=== PATIENT | female | born 1940 | race Caucasian/White ===

== ENCOUNTER 2017-05-22 13:28 | Emergency (ER) | payer MEDICARE, SELFPAY ==
[2017-05-22 13:31] VITALS: BP 101/65; PULSE 100; RESP 20; TEMP 37.2; O2SAT 92; BMI 21.0
--- NOTE | 2017-05-22 13:52 | EKG12_ITS ---
Test Reason : Blood Pressure : / mmHG Vent. Rate : 087 BPM Atrial Rate : 087 BPM P-R Int : 144 ms QRS Dur : 074 ms QT Int : 382 ms P-R-T Axes : 072 -45 060 degrees QTc Int : 459 ms Normal sinus rhythm Left axis deviation Low voltage QRS Abnormal ECG Confirmed by HELEN VENCES, MONICA ([id number]), industrial editor GINA TAMAYO ([id number] on 05/26/2017 2:00:59 PM Referred By: Angela Bañuelos Confirmed By:MONICA CERVANTES MD
--- NOTE | 2017-05-22 14:00 | RAD_ITS ---
STUDY: X-RAY CHEST REASON FOR EXAM: Female, 77 years old. BILATERAL LEG AND FEET SWELLING; COPD TECHNIQUE: Single AP portable view of the chest. COMPARISON: November 23, 2016 FINDINGS: The lungs are hyperexpanded. There is left worse than right basilar atelectasis. There is no demonstrated pleural abnormality. Normal size heart. Normal mediastinum and jason. Normal visualized pulmonary arteries. There is atherosclerotic calcification of the aortic arch with tortuosity. Normal visualized thoracic spine. Normal visualized ribs, clavicles, and shoulders. There is no demonstrated abnormality of the visualized soft tissue structures of the upper abdomen. RAD/Chest 1 View (Portable) IMPRESSION: There is chronic obstructive pulmonary disease. There is left worse than right basilar atelectasis. Electronically Signed: Taylor Royal MD at 14:22 EDT , Service support ,
--- NOTE | 2017-05-22 14:30 | ED.DCSUM_ITS ---
- ER Visit Summary Date of Service: 05/22/17 Chief Complaint: [] bilat ankle edema for a few days History of Present Illness: The patient is a 77 F [] has a long history of fatigue related to general deconditioning UTI sepsis etc. the patient's been at home living with her son had those recent diagnoses in March improved discharged home she will follow-up with her doctor early April all the tests including UA were negative the son reports since all of those diagnoses March and April and admissions she has basically been lethargic to where she does not want to go to bed will not walk will eat very little, she has had no fever no cough no chest head neck or abdominal pain, he noticed ankle edema bilaterally over the last few days he brought in for evaluation the patient says that her urinary and bowel bladder habits are normal she denies chest pain fever shortness of breath or cough she has no history of CHF liver failure renal failure DVT, when asked why she feels tired and she will basically get out of bed or move around she states she seems like she has no energy but nothing more specific than that she does eat small bites of food and again her bowel bladder habits have been unremarkable there are times where she thinks she is retaining urine Physical Examination: [] Is afebrile her vital signs are within normal range she sitting in the bed no distress head neck chest unremarkable lungs are clear heart tones are normal the abdomen soft nontender the back is unremarkable she has full range of motion of her lower extremities she has 1+-2+ edema at that level of the ankles there is no swelling of the calves there is no cords is no medial thigh pain there is no signs of DVT she has full range of motion at the hips knees and ankles she denies any history of obvious arthritis or anything that would cause bilateral ankle edema other than to report she simply is not as active as she was and she prefers basically either sit or lay around and has very little physical activity, she denies orthopnea or PND Test Results: [] Emergency Department Course and Treatment: [] Edema differential is rather extensive there is nothing to suggest infection DVT, her fatigue has been a long -standing issue her evaluation revealed Patient labs are unremarkable, chest x-ray see those reports, the patient Mei catheter had about 10 cc so she was not retaining urine the urinalysis is pending I explained to the son all of the above and the patient she is comfortable discharge home. UA did show signs of UTI urine culture was sent she was started on oral Cipro first dose here The son reports that basically since she was hospitalized late March or April she has been fatigued and deconditioned to where she simply has limited energy get out of bed, this is likely the cause of her edema he is comfortable for discharge home if the UA shows signs of UTI we will treat that as a precaution we sent a urine culture otherwise he will follow-up with her family doctor encourage her to activate and walk around the house discussed with PCP physical therapy and other management options, please note I did order thyroid screening studies are not available and the son will have the family doctor check these Treatment Plan: [] Disposition: [] Home stable Impression: [] Fatigue, lack of appetite, lower extremity edema This note was generated with [employer] Access dictation software. It may contain incorrect words, spelling, and punctuation that were not noted in review of the chart prior to signing ED Disposition - Plan for ED Patient: Chief Complaint: Edema Referrals: [facility] Doctor,Out of [Primary Care Provider] -
[2017-05-22 14:44] LABS: Absolute Neutrophil Count 3.2 X10^3/uL (2.0-7.7); Basophil# 0.01 X10^3/uL; Basophil% 0.2 % (0-1); Eosinophil# 0.01 X10^3/uL; Eosinophils% 0.2 % (0-5); Hematocrit 35.9 % (37-47); Lymphocyte % 28.5 % (19-41); Mean Corp Hgb Conc 33.4 g/gl (32-36); Mean Corpuscular Hgb 38.3 pg (27.0-32.0); Mean Corpuscular Volume 114.7 fL (81-99); Monocyte# 0.75 X10^3/uL; Monocyte% 13.3 % (0-10); Neutrophil # 3.24 X10^3/uL (2.7-7.7); Neutrophil % 57.6 % (47-70); Platelet Count 148 K/mm3 (150-450); RBC Distribution Width CV 15.7 % (11.6-14.6); RBC Distribution Width SD 64.9 fl (35.1-43.9); Red Blood Count 3.13 M/mm3 (4.2-5.4); White Blood Count 5.6 K/mm3 (4.4-11.0)
[2017-05-22 14:45] LABS: POSITIVE COUNT NO; POSITIVE DIFFERENTIAL NO; POSITIVE MORPHOLOGY NO
[2017-05-22 15:01] LABS: Anion Gap 11 (5-15); BUN 6 mg/dL (7-18); BUN/Creat Ratio 10.2 RATIO (10-20); Calcium,Total 8.2 mg/dL (8.5-10.1); Chloride 104 mmol/L (98-107); Creatinine, Serum 0.59 mg/dL (0.55-1.02); EST Glomerular Filtration Rate 106 mL/min (>60); Est Glom Filt Rate - Afr Amer 129 mL/min (>60); Estimated Creatinine Clearance 43.74 ml/min; Glucose 98 mg/dL (74-106); Potassium 2.9 mmol/L (3.5-5.1); Sodium Level 144 mmol/L (136-145)
[2017-05-22 15:23] LABS: BNP,B-Type NATRIURETIC PEPTIDE 185.5 pg/mL (0-100)
[2017-05-22 15:37] VITALS: BP 100/63; PULSE 80; RESP 20; O2SAT 93
[2017-05-22 16:01] LABS: Color, Urine Yellow (Yellow); Glucose, Dipstick Normal (Normal); Ketone-Dipstick 5 mg/dl (Negative); Leukocyte Esterase-Dipstick 500 /ul (Negative); Nitrite-Dipstick Positive (Negative); Occult Blood-Urine 250 /ul (Negative); Protein-Dipstick 100 mg/dl (Negative); Specific Gravity, Urine 1.015 (1.002-1.030); Urine Clarity Cloudy (Clear); Urine Urobilinogen 8 mg/dl (Normal)
[2017-05-22 16:20] LABS: Urine Bilirubin Dipstick 3 mg/dL (Negative)
[2017-05-22 16:23] LABS: Red Blood Cells-Urine 50-100 SEEN /hpf (0-5); Squamous Epithelial Cells - UA 5-10 SEEN /hpf (5-10); White Blood Cells 50-100 SEEN /hpf (0-5)
[2017-05-22 16:32] LABS: Amorphous Sediment 1+ URATE; Bacteria 4+ /hpf (None Seen); Mucous, Urine RARE /hpf (<or=2+)
--- NOTE | 2017-05-22 16:36 | DCINST.ED_ITS ---
ED Disposition - Plan for ED Patient: Chief Complaint: Edema Prescriptions: Ciprofloxacin [Cipro] 500 mg PO BID #14 tab Referrals: [facility] Doctor,Out of [Primary Care Provider] -
--- NOTE | 2017-05-22 16:38 | DCINST.ED_ITS ---
ED Disposition - Plan for ED Patient: Chief Complaint: Edema Instructions: ED Leg Swelling Bilateral, ED UTI Cystitis Female Prescriptions: Ciprofloxacin [Cipro] 500 mg PO BID #14 tab Referrals: [facility] Doctor,Out of [Primary Care Provider] - Additional Instructions: Make sure you have the urine culture report checked by your doctor and the thyroid study results checked by your doctor
[2017-05-22 16:52] LABS: T4 Total, Thyroxin 6.9 ug/dL (4.8-13.9); Thyroid Stim Hormone (TSH) 1.65 uIU/mL (0.358-3.74)
[2017-05-22] MEDS: Ciprofloxacin 500 MG Tablet PO (17:00)
[2017-05-22 17:20] VITALS: PULSE 86; RESP 18; O2SAT 95
== END 2017-05-22 17:21 | disposition home or self-care (01) ==
PROVIDERS: Emergency Provider Emergency Medicine
DX: N39.0 Urinary tract infection, site not specified (principal); R53.83 Other fatigue; R63.0 Anorexia; R60.0 Localized edema; J44.9 Chronic obstructive pulmonary disease, unspecified
CPT/HCPCS: 71045; 80048; 81001; 83880; 84436; 84443; 84484; 85025; 87077; 87086; 87088; 87186; 93005; 99285; A4216